=== PATIENT | male | born 1990 | race Hispanic/Latino ===

== ENCOUNTER 2022-11-09 23:08 | Emergency (ER) | payer BC ==
[~2022-11-09] VITALS: Ht 167.6 cm; Wt 71.7 kg
[2022-11-09 23:12] VITALS: BP 121/63
[2022-11-09] MEDS ORDERED: KETOROLAC 30MG VIAL (30MG/ML) IM ONE (23:30)
[2022-11-09] MEDS ORDERED: AMOX1TAB16 PO (23:32)
[2022-11-09] MEDS ORDERED: ERYT1OIN7 OP (23:32)
== END 2022-11-09 23:46 | disposition home or self-care (01) ==
LOC: EDH 23:08
DX: H66.003 Acute suppurative otitis media without spontaneous rupture of ear drum, bilateral (principal)
CPT/HCPCS: 99284; 96372; J1885

== ENCOUNTER 2023-07-06 21:21 | Emergency (ER) | payer BC ==
[~2023-07-06] VITALS: Ht 167.6 cm; Wt 68.0 kg
[~2023-07-06 21:21] MED LIST: AMOX1TAB16 PO; ERYT1OIN7 OP
[2023-07-06 21:51] VITALS: BP 135/68; PULSE 80; RESP 18; O2SAT 98
[2023-07-06] MEDS ORDERED: LIDOCAINE HCL 2% VISCOUS 15 ML UDCUP PO ONE (22:00)
[2023-07-06] MEDS ORDERED: MAG/ALUM/SIMETH 30 ML UDCUP PO ONE (22:00)
[2023-07-06] MEDS ORDERED: OMEP20TA2 PO (22:20)
[2023-07-06] MEDS ORDERED: MAG-55 PO (22:20)
== END 2023-07-06 22:50 | disposition home or self-care (01) ==
LOC: EDH 21:21
DX: F41.9 Anxiety disorder, unspecified (principal); K59.00 Constipation, unspecified; K21.9 Gastro-esophageal reflux disease without esophagitis
CPT/HCPCS: 93005

== ENCOUNTER 2023-08-14 00:50 | Emergency (ER) | payer BC ==
[~2023-08-14] VITALS: Ht 167.6 cm; Wt 69.9 kg
[~2023-08-14 00:50] MED LIST changes: +MAG-55 PO; +OMEP20TA2 PO
[2023-08-14 01:43] LABS: BASOPHILS # (AUTO) 0.02 K/uL (0.00-0.20); BASOPHILS % (AUTO) 0.3 % (0.0-5.0); EOSINOPHILS # (AUTO) 0.11 K/uL (0.00-0.70); EOSINOPHILS % (AUTO) 1.4 % (0.0-8.0); HEMATOCRIT 39.5 % (42-54); IMMATURE GRANULOCYTE ABSOLUTE 0.02 K/uL (0-1); LYMPHOCYTES # (AUTO) 2.6 K/uL (1.0-4.8); LYMPHOCYTES % (AUTO) 33.5 % (21.0-51.0); MEAN CORPUSCULAR HEMOGLOBIN 30.8 pg (27.0-33.0); MEAN CORPUSCULAR HGB CONC 34.9 g/dL (32.0-36.0); MEAN CORPUSCULAR VOLUME 88.2 fL (79-99); MONOCYTES # (AUTO) 0.5 K/uL (0.1-1.0); MONOCYTES % (AUTO) 6.7 % (3.0-13.0); NEUTROPHILS # (AUTO) 4.5 K/uL (1.8-7.7); NEUTROPHILS % (AUTO) 57.8 % (40.0-77.0); PLATELET COUNT (AUTO) 207 K/uL (130-400); RED BLOOD CELL COUNT(AUTO) 4.48 MIL/uL (4.50-6.20); RED CELL DISTRIBUTION WIDTH 12.1 % (11.0-15.5); WHITE BLOOD COUNT (AUTO) 7.7 K/uL (4.8-10.8)
[2023-08-14 01:57] LABS: ALBUMIN 4.1 g/dL (3.5-5.0); BILIRUBIN,TOTAL 0.5 mg/dL (0.2-1.0); TOTAL PROTEIN, SERUM 7.3 g/dL (6.0-8.3)
[2023-08-14 01:59] LABS: POTASSIUM 2.8 mmol/L (3.5-5.1)
[2023-08-14 02:05] LABS: B-TYPE NATRIURETIC PEPTIDE < 5 pg/mL (0-100)
[2023-08-14 02:10] LABS: APPEARANCE,URINE CLEAR (CLEAR); BILIRUBIN,URINE NEGATIVE (NEGATIVE); COLOR,URINE COLORLESS (YELLOW); GLUCOSE, URINE (UA) NEGATIVE (NEGATIVE); KETONES,URINE NEGATIVE (NEGATIVE); LEUKOCYTE ESTERASE ,URINE NEGATIVE Leu/uL (NEGATIVE); NITRATE,URINE NEGATIVE (NEGATIVE); OCCULT BLOOD,URINE NEGATIVE (NEGATIVE); PROTEIN,URINE NEGATIVE (NEGATIVE); UROBILINOGEN,URINE 0.2 mg/dL (0.2-1.0)
[2023-08-14 02:17] LABS: ADD UA MICROSCOPIC NO
[2023-08-14] MEDS ORDERED: CITA10TA13 PO (02:52)
[2023-08-14] MEDS ORDERED: POTASSIUM BICARB/CIT AC 25 MEQ TABLET.EFF PO ONE (03:00)
[2023-08-14 03:10] VITALS: BP 135/78; PULSE 52; RESP 18; O2SAT 100
[2023-08-14] MEDS ORDERED: POTASSIUM BICARB/CIT AC 25 MEQ TABLET.EFF PO SCH (09:00)
== END 2023-08-14 03:33 | disposition home or self-care (01) ==
LOC: EDH 00:50
DX: F41.9 Anxiety disorder, unspecified (principal); F32.A Depression, unspecified; E87.6 Hypokalemia; Z79.899 Other long term (current) drug therapy
CPT/HCPCS: 36415; 71045; 80053; 81003; 83880; 84484; 85025; 93005